=== PATIENT | male | born 1990 | race African-American/Black ===

== ENCOUNTER 2018-12-19 17:04 | Inpatient (IN) | payer MEDICAID ==
[~2018-12-19] VITALS: Ht 172.7 cm; Wt 108.8 kg
[2018-12-19] MEDS ORDERED: PB/HYOSCY/ATR/SCOP/LIDO/MAALOX 55 ML BOTTLE PO ONE (18:45)
[2018-12-19] MEDS ORDERED: SODIUM CHLORIDE 0.9% 1,000 ML IV ONE ×2 (18:45→19:30)
[2018-12-19] MEDS ORDERED: FAMOTIDINE 10 MG/ML 2 ML VIAL IVP ONE (18:45)
[2018-12-19 18:53] LABS: EOSINOPHILS % (AUTO) 0.1 % (1.0-6.0); HEMATOCRIT 53.9 % (41-53); HEMOGLOBIN 18.4 g/dL (13.5-17.5); LYMPHOCYTES # (AUTO) 0.7 K/uL (1.0-4.8); LYMPHOCYTES % (AUTO) 9.1 % (22.0-44.0); MEAN CORPUSCULAR HGB CONC 34.1 G/dL (31.0-37.0); MEAN CORPUSCULAR VOLUME 88 fL (80-100); MONOCYTES # (AUTO) 0.8 K/uL (0.1-1.0); MONOCYTES % (AUTO) 10.7 % (2.0-9.0); NEUTROPHILS # (AUTO) 6.3 K/uL (1.8-7.7); NEUTROPHILS % (AUTO) 79.1 % (40.0-70.0); PLATELET COUNT (AUTO) 437 K/uL (150-450); RED BLOOD CELL COUNT(AUTO) 6.14 MIL/uL (4.50-5.90); RED CELL DISTRIBUTION WIDTH 13.1 % (11.5-14.5)
[2018-12-19 19:26] LABS: ALANINE AMINOTRANSFERASE 123 U/L (12-78); ALBUMIN 5.1 g/dL (3.4-5.0); ALKALINE PHOSPHATASE 144 U/L (46-116); ANION GAP 31 mmol/L (8-16); ASPARTATE AMINOTRANSFERASE 44 U/L (15-37); CHLORIDE 99 mmol/L (98-107); CREATININE 1.12 mg/dL (0.60-1.30); GLOMERULAR FILTR. RATE CALC > 60 mL/min (>60); GLUCOSE,RANDOM 318 mg/dL (70-110); LIPASE 54 U/L (73-393); SODIUM SERUM 139 mmol/L (136-145); TOTAL PROTEIN, SERUM 9.2 g/dL (6.4-8.2); UREA NITROGEN, BLOOD 7 mg/dL (7-18)
[2018-12-19 19:28] LABS: CARBON DIOXIDE 9 mmol/L (22-29)
[2018-12-19 20:08] LABS: ABG A-A DIFF O2 19.2 mmHg (10-20.0); ABG BASE EXCESS -17.7 mmol/L (-2.0-3.0); ABG CARBOXYHEMOGLOBIN 0.3 % (0.0-3.0); ABG HCO3 13.3 mmol/L (22.0-26.0); ABG METHEMOGLOBIN 0.6 % (0.0-1.5); ABG OXYGEN CONTENT 23.3 mL/dL (15.0-23.0); ABG OXYGEN SATURATION 97.4 % (95.0-98.0); ABG OXYHEMOGLOBIN 96.5 % (94.0-100.0); ABG PCO2 23 mmHg (35-45); ABG PH 7.242 (7.350-7.450); ABG TOTAL HEMOGLOBIN 17.1 G/dL (12.0-18.0); SITE, BLOOD GAS LFT RADIAL; SOURCE, BLOOD GAS ARTERIAL; TEMPERATURE, FAHRENHEIT, BG 98.6 FAHREN (96.0-98.6)
[2018-12-19 21:02] LABS: APPEARANCE,URINE CLEAR (CLEAR); BILIRUBIN,URINE NEGATIVE (NEGATIVE); GLUCOSE, URINE (UA) >=1000 mg/dL (NEGATIVE); KETONES,URINE >=80 mg/dL (NEGATIVE); LEUKOCYTE ESTERASE ,URINE NEGATIVE (NEGATIVE); NITRATE,URINE NEGATIVE (NEGATIVE); OCCULT BLOOD,URINE TRACE (NEGATIVE); PROTEIN,URINE POS 1+ (NEGATIVE); UROBILINOGEN,URINE 0.2 mg/dL (<=1.0)
[2018-12-19 21:10] LABS: ANION GAP 22 mmol/L (8-16); CALCIUM, TOTAL 8.6 mg/dL (8.8-10.5); CARBON DIOXIDE 14 mmol/L (22-29); CHLORIDE 102 mmol/L (98-107); CREATININE 1.01 mg/dL (0.60-1.30); GLOMERULAR FILTR. RATE CALC > 60 mL/min (>60); GLUCOSE,RANDOM 274 mg/dL (70-110); POTASSIUM 3.4 mmol/L (3.5-5.1); SODIUM SERUM 138 mmol/L (136-145); UREA NITROGEN, BLOOD 5 mg/dL (7-18)
[2018-12-19] MEDS: POTASSIUM CHL 10 MEQ/WATER 50 ML IV SCH ×3 (21:10→23:09)
[2018-12-19 21:14] LABS: BACTERIA,URINE None Seen /HPF (None Seen); RBC,URINE 0-2 /HPF (0-2); WBC,URINE 0-2 /HPF (0-5)
[2018-12-19 21:15] LABS: SQUAMOUS EPITHELIAL CELL,UR Rare /LPF (None Seen)
[2018-12-19] MEDS ORDERED: ACETAMINOPHEN 325 MG TABLET PO PRN ×2 (21:15→21:30)
[2018-12-19 21:16] LABS: ALANINE AMINOTRANSFERASE 105 U/L (12-78); ALBUMIN 4.5 g/dL (3.4-5.0); ALKALINE PHOSPHATASE 125 U/L (46-116); ASPARTATE AMINOTRANSFERASE 34 U/L (15-37); BILIRUBIN,TOTAL 0.8 mg/dL (0.1-1.0); TOTAL PROTEIN, SERUM 7.9 g/dL (6.4-8.2)
[2018-12-19] MEDS ORDERED: DEXTROSE 5%-0.45% SODIUM CHL 1,000 ML IV PRN (21:16)
[2018-12-19] MEDS ORDERED: INSULIN REGULAR, HUMAN 100 UNITS in SODIUM CHLORIDE 0.9% 99 ML IV PRN ×2 (21:16)
[2018-12-19] MEDS ORDERED: SODIUM CHLORIDE 0.45% 1,000 ML IV PRN (21:16)
[2018-12-19] MEDS ORDERED: POTASSIUM CHL 20 MEQ/0.45% NS 1,000 ML IV PRN (21:16)
[2018-12-19] MEDS ORDERED: SODIUM CHLORIDE 0.9% 1,000 ML IV SCH (21:16)
[2018-12-19] MEDS ORDERED: POTASSIUM CHLORIDE 40 MEQ in SODIUM CHLORIDE 0.45% 1,000 ML IV PRN (21:16)
[2018-12-19] MEDS ORDERED: MAGNESIUM SULFATE 2 GM/WATER 50 ML IV ONE (21:30)
[2018-12-19] MEDS ORDERED: POTASSIUM PHOS,M-BASIC-D-BASIC 20 MMOL in SODIUM CHLORIDE 0.45% 500 ML IV PRN (21:30)
[2018-12-19] MEDS ORDERED: INSULIN REGULAR, HUMAN 100 UNITS/ML IVP PRN (21:30)
[2018-12-19] MEDS ORDERED: ONDANSETRON HCL 4 MG/2 ML VIAL IVP PRN (21:30)
[2018-12-19] MEDS ORDERED: 0.9% SODIUM CHLORIDE 10 ML SYRINGE IVP PRN (21:30)
[2018-12-19] MEDS ORDERED: DEXTROSE 50%-WATER 25 GM/50 ML SYRINGE IVP PRN (21:30)
[2018-12-19 22:50] LABS: GLUCOSE,POINT OF CARE 217 MG/DL (70-110)
[2018-12-19] MEDS: POTASSIUM CHL 10 MEQ/WATER 50 ML IV PRN (23:30)
[2018-12-20 00:05] LABS: GLUCOSE,POINT OF CARE 215 MG/DL (70-110)
[2018-12-20 01:17] LABS: ANION GAP 22 mmol/L (8-16); CALCIUM, TOTAL 8.3 mg/dL (8.8-10.5); CARBON DIOXIDE 14 mmol/L (22-29); CHLORIDE 108 mmol/L (98-107); CREATININE 1.01 mg/dL (0.60-1.30); GLOMERULAR FILTR. RATE CALC > 60 mL/min (>60); GLUCOSE,RANDOM 151 mg/dL (70-110); POTASSIUM 3.2 mmol/L (3.5-5.1); SODIUM SERUM 144 mmol/L (136-145); UREA NITROGEN, BLOOD 5 mg/dL (7-18)
[2018-12-20 04:00] VITALS: BP 126/70
[2018-12-20 04:36] LABS: GLUCOSE,POINT OF CARE 151 MG/DL (70-110)
[2018-12-20] MEDS ORDERED: INFLUENZA VIRUS VACCINE QVS 2019-20 (3YR+)/PF 60 MCG/0.5 ML SYRINGE IM ONE (05:45)
[2018-12-20 06:01] LABS: BASOPHILS % (AUTO) 0.4 % (0.0-2.0); EOSINOPHILS % (AUTO) 0.1 % (1.0-6.0); HEMATOCRIT 45.3 % (41-53); HEMOGLOBIN 15.5 g/dL (13.5-17.5); LYMPHOCYTES # (AUTO) 1.5 K/uL (1.0-4.8); LYMPHOCYTES % (AUTO) 16.5 % (22.0-44.0); MEAN CORPUSCULAR HEMOGLOBIN 30.1 pg (26.0-34.0); MEAN CORPUSCULAR HGB CONC 34.2 G/dL (31.0-37.0); MEAN CORPUSCULAR VOLUME 88 fL (80-100); MONOCYTES # (AUTO) 1.4 K/uL (0.1-1.0); MONOCYTES % (AUTO) 15.3 % (2.0-9.0); NEUTROPHILS % (AUTO) 67.7 % (40.0-70.0); PLATELET COUNT (AUTO) 362 K/uL (150-450); RED BLOOD CELL COUNT(AUTO) 5.14 MIL/uL (4.50-5.90); RED CELL DISTRIBUTION WIDTH 13.1 % (11.5-14.5)
[2018-12-20 06:12] LABS: ALANINE AMINOTRANSFERASE 87 U/L (12-78); ALKALINE PHOSPHATASE 110 U/L (46-116); ANION GAP 18 mmol/L (8-16); ASPARTATE AMINOTRANSFERASE 31 U/L (15-37); BILIRUBIN,TOTAL 0.7 mg/dL (0.1-1.0); CALCIUM, TOTAL 8.2 mg/dL (8.8-10.5); CARBON DIOXIDE 16 mmol/L (22-29); CHLORIDE 106 mmol/L (98-107); CREATININE 1.02 mg/dL (0.60-1.30); GLOMERULAR FILTR. RATE CALC > 60 mL/min (>60); GLUCOSE,RANDOM 84 mg/dL (70-110); POTASSIUM 3.1 mmol/L (3.5-5.1); SODIUM SERUM 140 mmol/L (136-145)
[2018-12-20 06:16] LABS: HEMOGLOBIN A1C 9.4 % (4.5-6.2)
[2018-12-20 06:29] LABS: UREA NITROGEN, BLOOD 4 mg/dL (7-18)
[2018-12-20 06:37] LABS: PHOSPHORUS 0.8 mg/dL (2.5-4.9)
[2018-12-20] MEDS ORDERED: POTASSIUM PHOS,M-BASIC-D-BASIC 20 MMOL in SODIUM CHLORIDE 0.45% 500 ML IV PRN (07:30)
[2018-12-20 08:00] VITALS: BP 112/74
[2018-12-20] MEDS ORDERED: POTASSIUM PHOS,M-BASIC-D-BASIC 30 MEQ in DEXTROSE 5%-WATER 150 ML IV ONE (08:00)
[2018-12-20] MEDS ORDERED: SODIUM CHLORIDE 0.9% 1,000 ML IV ONE (08:00)
[2018-12-20] MEDS ORDERED: DEXTROSE 50%-WATER 25 GM/50 ML SYRINGE IVP PRN (08:15)
[2018-12-20] MEDS: DOCUSATE SODIUM 100 MG CAPSULE PO SCH ×2 (08:43→21:00)
[2018-12-20] MEDS: FAMOTIDINE 20 MG TABLET PO SCH (08:43)
[2018-12-20 11:20] LABS: GLUCOSE,POINT OF CARE 139 MG/DL (70-110)
[2018-12-20 11:20] LABS: GLUCOSE,POINT OF CARE 145 MG/DL (70-110)
[2018-12-20 11:20] LABS: GLUCOSE,POINT OF CARE 69 MG/DL (70-110)
[2018-12-20 11:20] LABS: GLUCOSE,POINT OF CARE 164 MG/DL (70-110)
[2018-12-20 11:20] LABS: GLUCOSE,POINT OF CARE 103 MG/DL (70-110)
[2018-12-20 11:20] LABS: GLUCOSE,POINT OF CARE 108 MG/DL (70-110)
[2018-12-20 11:20] LABS: GLUCOSE,POINT OF CARE 76 MG/DL (70-110)
[2018-12-20] MEDS: INSULIN LISPRO 100 UNITS/ML SQ PRN ×3 (11:46→21:20)
[2018-12-20 12:00] VITALS: BP 144/69
[2018-12-20 12:01] LABS: GLUCOSE,POINT OF CARE 269 MG/DL (70-110)
[2018-12-20 16:00] VITALS: BP 119/65
[2018-12-20 20:49] VITALS: BP 135/75
[2018-12-21] VITALS (7 sets, daily range): BP systolic 125–144; BP diastolic 73–86
[2018-12-21] LABS: GLUCOMETER DEV NAME(LOC) 5S.1; GLUCOSE,POINT OF CARE 219 MG/DL (70-110)
[2018-12-21] MEDS: INSULIN LISPRO 100 UNITS/ML SQ PRN ×4 (05:43→21:14)
[2018-12-21] MEDS: FAMOTIDINE 20 MG TABLET PO SCH (08:03)
[2018-12-21] MEDS: DOCUSATE SODIUM 100 MG CAPSULE PO SCH ×2 (08:03→21:00)
[2018-12-21 08:12] LABS: ANION GAP 18 mmol/L (8-16); CALCIUM, TOTAL 8.8 mg/dL (8.8-10.5); CARBON DIOXIDE 19 mmol/L (22-29); CHLORIDE 98 mmol/L (98-107); CREATININE 0.95 mg/dL (0.60-1.30); GLOMERULAR FILTR. RATE CALC > 60 mL/min (>60); GLUCOSE,RANDOM 259 mg/dL (70-110); PHOSPHORUS 1.8 mg/dL (2.5-4.9); SODIUM SERUM 135 mmol/L (136-145); UREA NITROGEN, BLOOD 2 mg/dL (7-18)
[2018-12-21 08:27] LABS: POTASSIUM 2.6 mmol/L (3.5-5.1)
[2018-12-21] MEDS ORDERED: SODIUM CHLORIDE 0.9% 0 ML IV ONE (08:45)
[2018-12-21] MEDS: POTASSIUM CHL 10 MEQ/WATER 50 ML IV PRN ×4 (08:50→14:40)
[2018-12-21 09:30] LABS: GLUCOSE,POINT OF CARE 199 MG/DL (70-110)
[2018-12-21] MEDS: ONDANSETRON HCL 4 MG/2 ML VIAL IVP PRN ×2 (10:19→17:34)
[2018-12-21] MEDS ORDERED: SODIUM CHLORIDE 0.9% 1,000 ML IV ONE (14:00)
[2018-12-21] MEDS ORDERED: POTASSIUM PHOS,M-BASIC-D-BASIC 20 MMOL in DEXTROSE 5%-WATER 150 ML IV ONE (14:00)
[2018-12-21 17:40] LABS: GLUCOMETER DEV NAME(LOC) 5N.1; GLUCOSE,POINT OF CARE 216 MG/DL (70-110)
[2018-12-21 19:40] LABS: GLUCOMETER DEV NAME(LOC) 5S.1; GLUCOSE,POINT OF CARE 254 MG/DL (70-110)
[2018-12-21 19:55] LABS: GLUCOMETER DEV NAME(LOC) 5S.2A; GLUCOSE,POINT OF CARE 226 MG/DL (70-110)
[2018-12-22 04:37] VITALS: BP 135/87
[2018-12-22] MEDS: INSULIN LISPRO 100 UNITS/ML SQ PRN ×4 (06:10→22:20)
[2018-12-22 07:16] VITALS: BP 135/77
[2018-12-22 07:58] LABS: POTASSIUM 2.3 mmol/L (3.5-5.1)
[2018-12-22 08:01] LABS: GLUCOMETER DEV NAME(LOC) 5N.1; GLUCOSE,POINT OF CARE 223 MG/DL (70-110)
[2018-12-22 08:01] LABS: GLUCOMETER DEV NAME(LOC) 5S.1; GLUCOSE,POINT OF CARE 265 MG/DL (70-110)
[2018-12-22] MEDS: DOCUSATE SODIUM 100 MG CAPSULE PO SCH ×2 (08:12→21:11)
[2018-12-22] MEDS: FAMOTIDINE 20 MG TABLET PO SCH (08:12)
[2018-12-22] MEDS: POTASSIUM CHL 10 MEQ/WATER 50 ML IV PRN ×6 (08:13→22:20)
[2018-12-22] MEDS ORDERED: SODIUM CHLORIDE 0.9% 100 ML ONE (08:15)
[2018-12-22 11:33] VITALS: BP 140/66
[2018-12-22 15:17] VITALS: BP 118/84
[2018-12-22 17:16] LABS: GLUCOMETER DEV NAME(LOC) 5N.2; GLUCOSE,POINT OF CARE 228 MG/DL (70-110)
[2018-12-22] MEDS: MetFORMIN HCL 500 MG TABLET PO SCH (18:27)
[2018-12-22] MEDS ORDERED: SODIUM CHLORIDE 0.9% 250 ML IV ONE (18:44)
[2018-12-22 20:00] LABS: GLUCOMETER DEV NAME(LOC) 5S.1; GLUCOSE,POINT OF CARE 233 MG/DL (70-110)
[2018-12-22 20:05] VITALS: BP 128/77
[2018-12-22] MEDS ORDERED: SODIUM CHLORIDE 0.9% 500 ML IV ONE (22:22)
[2018-12-22] MEDS: ONDANSETRON HCL 4 MG/2 ML VIAL IVP PRN (23:06)
[2018-12-23 00:15] VITALS: BP 130/78
[2018-12-23] MEDS: POTASSIUM CHL 10 MEQ/WATER 50 ML IV PRN ×7 (00:21→22:13)
[2018-12-23 05:02] VITALS: BP 124/76
[2018-12-23 05:16] LABS: GLUCOMETER DEV NAME(LOC) 5S.2A; GLUCOSE,POINT OF CARE 209 MG/DL (70-110)
[2018-12-23] MEDS: INSULIN LISPRO 100 UNITS/ML SQ PRN ×4 (05:23→21:45)
[2018-12-23 06:46] LABS: GLUCOMETER DEV NAME(LOC) 5N.1; GLUCOSE,POINT OF CARE 183 MG/DL (70-110)
[2018-12-23 07:29] VITALS: BP 128/78
[2018-12-23] MEDS: POTASSIUM CHLORIDE 20 MEQ ER TABLET PO PRN ×2 (08:37→15:30)
[2018-12-23] MEDS: DOCUSATE SODIUM 100 MG CAPSULE PO SCH ×2 (08:37→20:23)
[2018-12-23] MEDS: MetFORMIN HCL 500 MG TABLET PO SCH (08:37)
[2018-12-23] MEDS: FAMOTIDINE 20 MG TABLET PO SCH (08:37)
[2018-12-23 11:05] VITALS: BP 106/62
[2018-12-23 12:11] LABS: GLUCOMETER DEV NAME(LOC) 5S.2A; GLUCOSE,POINT OF CARE 231 MG/DL (70-110)
[2018-12-23] MEDS ORDERED: KDUR20 PO (13:46)
[2018-12-23] MEDS ORDERED: METF-445 PO (13:46)
[2018-12-23] MEDS ORDERED: [UNRECOGNIZED DRUG - CODE] MC (13:49)
[2018-12-23 15:37] VITALS: BP 138/73
[2018-12-23] MEDS: MetFORMIN HCL 850 MG TABLET PO SCH (18:01)
[2018-12-23 20:07] VITALS: BP 137/80
[2018-12-23] MEDS: POTASSIUM CHLORIDE 20 MEQ ER TABLET PO SCH (20:23)
[2018-12-23] MEDS ORDERED: SODIUM CHLORIDE 0.9% 250 ML IV ONE (22:51)
[2018-12-24] VITALS (7 sets, daily range): BP systolic 113–127; BP diastolic 64–84
[2018-12-24] MEDS: POTASSIUM CHLORIDE 20 MEQ ER TABLET PO PRN (00:57)
[2018-12-24 02:15] LABS: GLUCOMETER DEV NAME(LOC) 5N.1; GLUCOSE,POINT OF CARE 215 MG/DL (70-110)
[2018-12-24 05:56] LABS: GLUCOMETER DEV NAME(LOC) 5S.1; GLUCOSE,POINT OF CARE 211 MG/DL (70-110)
[2018-12-24] MEDS: INSULIN LISPRO 100 UNITS/ML SQ PRN ×4 (06:17→20:46)
[2018-12-24 07:01] LABS: ALANINE AMINOTRANSFERASE 89 U/L (12-78); ALBUMIN 3.6 g/dL (3.4-5.0); ALKALINE PHOSPHATASE 107 U/L (46-116); ANION GAP 9 mmol/L (8-16); ASPARTATE AMINOTRANSFERASE 39 U/L (15-37); BILIRUBIN,TOTAL 0.9 mg/dL (0.1-1.0); CALCIUM, TOTAL 8.6 mg/dL (8.8-10.5); CARBON DIOXIDE 29 mmol/L (22-29); CHLORIDE 99 mmol/L (98-107); CREATININE 0.66 mg/dL (0.60-1.30); GLOMERULAR FILTR. RATE CALC > 60 mL/min (>60); GLUCOSE,RANDOM 181 mg/dL (70-110); SODIUM SERUM 137 mmol/L (136-145); TOTAL PROTEIN, SERUM 6.6 g/dL (6.4-8.2); UREA NITROGEN, BLOOD 4 mg/dL (7-18)
[2018-12-24 07:05] LABS: POTASSIUM 2.9 mmol/L (3.5-5.1)
[2018-12-24] MEDS: POTASSIUM CHL 10 MEQ/WATER 50 ML IV PRN ×4 (07:22→10:38)
[2018-12-24] MEDS: MetFORMIN HCL 850 MG TABLET PO SCH ×2 (08:23→17:31)
[2018-12-24] MEDS: FAMOTIDINE 20 MG TABLET PO SCH (08:23)
[2018-12-24] MEDS: DOCUSATE SODIUM 100 MG CAPSULE PO SCH ×2 (08:24→20:50)
[2018-12-24 11:46] LABS: GLUCOMETER DEV NAME(LOC) 5N.1; GLUCOSE,POINT OF CARE 177 MG/DL (70-110)
[2018-12-24] MEDS ORDERED: POTASSIUM CHLORIDE 20 MEQ ER TABLET PO ONE ×2 (12:30→22:00)
[2018-12-24] MEDS: POTASSIUM CHLORIDE 20 MEQ ER TABLET PO SCH ×2 (12:54→20:47)
[2018-12-25 04:19] VITALS: BP 130/73
[2018-12-25] MEDS: INSULIN LISPRO 100 UNITS/ML SQ PRN ×2 (05:48→12:23)
[2018-12-25 05:52] LABS: ALANINE AMINOTRANSFERASE 87 U/L (12-78); ALBUMIN 3.7 g/dL (3.4-5.0); ALKALINE PHOSPHATASE 104 U/L (46-116); ANION GAP 9 mmol/L (8-16); ASPARTATE AMINOTRANSFERASE 41 U/L (15-37); BILIRUBIN,TOTAL 0.9 mg/dL (0.1-1.0); CALCIUM, TOTAL 8.8 mg/dL (8.8-10.5); CARBON DIOXIDE 27 mmol/L (22-29); CHLORIDE 101 mmol/L (98-107); CREATININE 0.67 mg/dL (0.60-1.30); GLOMERULAR FILTR. RATE CALC > 60 mL/min (>60); GLUCOSE,RANDOM 168 mg/dL (70-110); POTASSIUM 3.2 mmol/L (3.5-5.1); SODIUM SERUM 137 mmol/L (136-145); TOTAL PROTEIN, SERUM 6.5 g/dL (6.4-8.2); UREA NITROGEN, BLOOD 4 mg/dL (7-18)
[2018-12-25 06:17] LABS: GLUCOMETER DEV NAME(LOC) 5S.1; GLUCOSE,POINT OF CARE 201 MG/DL (70-110)
[2018-12-25 06:17] LABS: GLUCOMETER DEV NAME(LOC) 5S.1; GLUCOSE,POINT OF CARE 183 MG/DL (70-110)
[2018-12-25 06:18] LABS: GLUCOMETER DEV NAME(LOC) 5S.1; GLUCOSE,POINT OF CARE 177 MG/DL (70-110)
[2018-12-25] MEDS: POTASSIUM CHLORIDE 20 MEQ ER TABLET PO PRN (07:05)
[2018-12-25 07:36] LABS: GLUCOMETER DEV NAME(LOC) 5S.2A; GLUCOSE,POINT OF CARE 173 MG/DL (70-110)
[2018-12-25 08:01] VITALS: BP 123/76
[2018-12-25] MEDS: FAMOTIDINE 20 MG TABLET PO SCH (08:08)
[2018-12-25] MEDS: POTASSIUM CHLORIDE 20 MEQ ER TABLET PO SCH (08:08)
[2018-12-25] MEDS: MetFORMIN HCL 850 MG TABLET PO SCH (08:09)
[2018-12-25] MEDS: DOCUSATE SODIUM 100 MG CAPSULE PO SCH (08:16)
[2018-12-25] MEDS ORDERED: SODIUM CHLORIDE 0.9% 100 ML ONE (08:56)
[2018-12-25] MEDS ORDERED: MAGNESIUM SULFATE 2 GM/WATER 50 ML IV ONE (09:00)
[2018-12-25 11:12] VITALS: BP 113/61
[2018-12-25] MEDS: ONDANSETRON HCL 4 MG/2 ML VIAL IVP PRN (12:56)
[2018-12-25] MEDS: POTASSIUM CHL 10 MEQ/WATER 50 ML IV PRN ×2 (12:56→13:45)
[2018-12-25] MEDS ORDERED: SODIUM CHLORIDE 0.9% 250 ML IV ONE (13:00)
[2018-12-25 13:37] LABS: GLUCOMETER DEV NAME(LOC) 5N.1; GLUCOSE,POINT OF CARE 157 MG/DL (70-110)
[2018-12-25] MEDS ORDERED: POTASSIUM CHLORIDE 20 MEQ ER TABLET PO ONE (15:15)
[2018-12-25 15:32] VITALS: BP 137/75
[2018-12-25] MEDS ORDERED: POTA-9 PO (15:51)
[2018-12-25] MEDS ORDERED: MAGOX PO (15:52)
== END 2018-12-25 15:00 | disposition home or self-care (01) | DRG 48 ==
LOC: EMS 17:06 → ICU 22:00 → 5S 12-20 18:30
PROVIDERS: ADMIT Internal Medicine; ATTEND Internal Medicine
DX: E11.43 Type 2 diabetes mellitus with diabetic autonomic (poly)neuropathy (principal); E87.4 Mixed disorder of acid-base balance; E44.0 Moderate protein-calorie malnutrition; E11.10 Type 2 diabetes mellitus with ketoacidosis without coma; E66.01 Morbid (severe) obesity due to excess calories; K31.84 Gastroparesis; E83.39 Other disorders of phosphorus metabolism; E87.6 Hypokalemia; R74.0 Nonspecific elevation of levels of transaminase and lactic acid dehydrogenase [LDH]; E86.0 Dehydration; K21.9 Gastro-esophageal reflux disease without esophagitis; R79.89 Other specified abnormal findings of blood chemistry; Z68.36 Body mass index [BMI] 36.0-36.9, adult; Z23 Encounter for immunization
CPT/HCPCS: 36600; 76700; 82805; 83036; 83735; 84100; 84132; 87081; 90686; 93005; 99291; G0378; J1815; J2405; J3475; J3480; J3490; J7030; J7040; J7050; J7060